=== PATIENT | female | born 1985 | race African-American/Black ===

== ENCOUNTER 2017-07-02 01:52 | Emergency (ER) | payer BC ==
--- NOTE | 2017-07-02 02:01 | EDM.PDOC ---
ED HPI GENERAL MEDICAL PROBLEM - General Chief Complaint: Laceration Stated Complaint: CUT ON RIGHT ARM Time Seen by Provider: 07/02/17 02:01 Source of Information: Reports: Patient - History of Present Illness INITIAL COMMENTS - FREE TEXT/NARRATIVE: HISTORY AND PHYSICAL: History of present illness: [ Patient presents with 2 lacerations on her right arm near the antecubital fossa , first lesion is gaping and 5 cm, this lesion has a torn appearance and is angular almost zigzag appearance A second laceration below this is 2.5 cm and linear traveling proximal to distal ] She is also missing the entire nail on her right thumb Patient denies self-harm, patient will not relay what occurred, police dropped her off at the front door but did not accompany in our relay any specifics No fever nausea vomiting chills sweats no chest pain shortness breath headache dizziness palpitation Review of systems: As per history of present illness and below otherwise all systems reviewed and negative. Past medical history: As per history of present illness and as reviewed below otherwise noncontributory. Surgical history: As per history of present illness and as reviewed below otherwise noncontributory. Social history: No reported history of drug or alcohol abuse. Family history: As per history of present illness and as reviewed below otherwise noncontributory. Physical exam: HEENT: Atraumatic, normocephalic, pupils reactive, negative for conjunctival pallor or scleral icterus, mucous membranes moist, throat clear, neck supple, nontender, trachea midline. Lungs: Clear to auscultation, breath sounds equal bilaterally, chest nontender. Heart: S1S2, regular, negative for clicks, rubs, or JVD. Abdomen: Soft, nondistended, nontender. Negative for masses or hepatosplenomegaly. Negative for costovertebral tenderness. Pelvis: Stable nontender. Genitourinary: Deferred. Rectal: Deferred. Extremities: Atraumatic, negative for cords or calf pain. Neurovascular unremarkable. Neuro: Awake, alert, oriented. Cranial nerves II through XII unremarkable. Cerebellum unremarkable. Motor and sensory unremarkable throughout. Exam nonfocal. Skin as per history of present illness otherwise unremarkable Diagnostics: [Clinical] Therapeutics: [T dap Keflex 500 by mouth Wound cleansed and explored Lidocaine #5 5-0 Prolene interrupted sutures lesion #1 #2 5-0 Prolene sutures interrupted lesion #2 ] Fingernail injury right thumb, bacitracin Telfa tube dressing placed Sutures out in 10 days Follow-up with Adrienne Sykes Impression: [ 7.5 cm laceration , simple Right thumbnail injury ] Definitive disposition and diagnosis as appropriate pending reevaluation and review of above. Generalized Pain Score (Numeric/FACES): 10 - Related Data Allergies Allergy/AdvReac Type Severity Reaction Status Date / Time No Known Allergies Allergy Verified 07/02/17 02:15 Home Meds: Home Meds . [No Known Home Meds] 07/02/17 [History] Past Medical History - Past Health History Medical/Surgical History: Denies Medical/Surgical History - Infectious Disease History Infectious Disease History: Reports: Chicken Pox Social & Family History - Living Situation & Occupation Living situation: Reports: Single ED ROS GENERAL - Review of Systems Review Of Systems: See Below ED EXAM, SKIN/RASH Exam: See Below Course - Vital Signs Last Recorded V/S: Last Vital Signs Temp 98.6 F 07/02/17 02:39 Pulse 91 07/02/17 02:39 Resp 22 H 07/02/17 02:39 BP 116/72 07/02/17 02:39 Pulse Ox 99 07/02/17 02:39 - Orders/Labs/Meds Orders: Active Orders 24 hr Category Date Time Status Vaccines to be Administered [RC] PER UNIT ROUTINE Care 07/02/17 02:02 Active Cephalexin [Keflex] Med 07/02/17 02:43 Once 500 mg PO ONETIME ONE Meds: Medications Discontinued Medications Generic Name Dose Route Start Last Admin Trade Name Freq PRN Reason Stop Dose Admin Diphtheria/Tetanus/Acell Pertussis 0.5 ml 07/02/17 02:02 07/02/17 02:28 Adacel IM 07/02/17 02:03 0.5 ml .ONCE ONE Administration Lidocaine HCl 20 ml 07/02/17 02:02 07/02/17 02:28 Xylocaine 1% INJECT 07/02/17 02:03 20 ml ONETIME ONE Administration Departure - Departure Time of Disposition: 02:48 Disposition: Home, Self-Care 01 Condition: Good Clinical Impression: Laceration, Fingernail injury - Discharge Information Referrals: PCP,None [Primary Care Provider] - Forms: ED Department Discharge Additional Instructions: Standard wound care Sutures out in 10 days Keflex 500 by mouth twice a day #20 no refill Follow-up with Dr. Melanie Sykes concerning the thumbnail, sutures could repeat removed at that time or return to ER for suture removal [facility] - [facility] [address], [address] [place] [address] The following information is given to patients seen in the emergency department who are being discharged to home. This information is to outline your options for follow-up care. We provide all patients seen in our emergency department with a follow-up referral. The need for follow-up, as well as the timing and circumstances, are variable depending upon the specifics of your emergency department visit. If you don't have a primary care physician on staff, we will provide you with a referral. We always advise you to contact your personal physician following an emergency department visit to inform them of the circumstance of the visit and for follow-up with them and/or the need for any referrals to a consulting specialist. The emergency department will also refer you to a specialist when appropriate. This referral assures that you have the opportunity for follow-up care with a specialist. All of these measure are taken in an effort to provide you with optimal care, which includes your follow-up. Under all circumstances we always encourage you to contact your private physician who remains a resource for coordinating your care. When calling for follow-up care, please make the office aware that this follow-up is from your recent emergency room visit. If for any reason you are refused follow-up, please contact the [facility] emergency department at and asked to speak to the emergency department charge nurse. - My Orders Last 24 Hours: My Active Orders 07/02/17 02:02 Vaccines to be Administered [RC] PER UNIT ROUTINE 07/02/17 02:43 Cephalexin [Keflex] 500 mg PO ONETIME ONE - Assessment/Plan Last 24 Hours: My Active Orders 07/02/17 02:02 Vaccines to be Administered [RC] PER UNIT ROUTINE 07/02/17 02:43 Cephalexin [Keflex] 500 mg PO ONETIME ONE
[2017-07-02] MEDS ORDERED: Lidocaine 1% 20 ML MDV INJECT ONE (02:02)
[2017-07-02] MEDS ORDERED: Diphtheria,Pertussis(Acell),Tetanus Vaccine 0.5 ML Syringe IM ONE (02:02)
[2017-07-02] MEDS ORDERED: Cephalexin 500 MG Cap PO ONE (02:43)
[2017-07-02] MEDS ORDERED: Bacitracin Oint 1 GM U/D Packet TOP ONE (02:45)
[2017-07-02 03:10] VITALS: BP 126/74
== END 2017-07-02 03:05 | disposition home or self-care (01) ==
LOC: MW.ED 01:52
DX: S61.111A Laceration without foreign body of right thumb with damage to nail, initial encounter (principal); S41.111A Laceration without foreign body of right upper arm, initial encounter; W45.8XXA Other foreign body or object entering through skin, initial encounter; Z23 Encounter for immunization
CPT/HCPCS: 12002; 90471; 90715; 99283; A9270

== ENCOUNTER 2019-08-20 23:23 | Emergency (ER) | payer BC ==
--- NOTE | 2019-08-20 23:45 | EDM.PDOC ---
ED HPI GENERAL MEDICAL PROBLEM - General Chief Complaint: ENT Problem Stated Complaint: GLUE IN LEFT EYE Time Seen by Provider: 08/20/19 23:35 Source of Information: Reports: Patient History Limitations: Reports: No Limitations - History of Present Illness INITIAL COMMENTS - FREE TEXT/NARRATIVE: 34-year-old female presents with eyelash priming glue to the right eye just prior to arrival. she rinsed it off with water for about 5 to 10 minutes. She notes blurry vision in her right eye and pain to her right eye. She does not wear glasses. ROS: A 10-point review of systems, other than pertinent positives and negatives as stated per HPI, is otherwise negative PHYSICAL EXAM General: AOx4, GCS = 15, No distress HEENT: dry mucous membrane, right eye injected, glue remnant at the center of the right eye. Neck: supple, no meningismus, no Kernig or Brudzinski Cardiac: S1S2 RRR Respiratory: CTAB, no crackles or rales, no wheezing Abdomen: Soft, nontender, no rebound or guarding, nondistended, no pulsatile mass. Back: nontender Musculoskeletal: NVI distally, no deformity Neuro: No focal deficits, CN 2 - 12 WNL. Onset: Today - Related Data Allergies Allergy/AdvReac Type Severity Reaction Status Date / Time No Known Allergies Allergy Verified 08/20/19 23:37 Home Meds: Home Meds . [No Known Home Meds] 07/02/17 [History] Past Medical History - Past Health History Medical/Surgical History: Denies Medical/Surgical History - Infectious Disease History Infectious Disease History: Reports: Chicken Pox Social & Family History - Family History Family Medical History: Noncontributory - Caffeine Use Caffeine Use: Reports: None - Living Situation & Occupation Living situation: Reports: Single ED ROS ENT - Review of Systems Review Of Systems: Comprehensive ROS is negative, except as noted in HPI. ED EXAM, ENT - Physical Exam Exam: See Below (see dictation) Course - Vital Signs Last Recorded V/S: Last Vital Signs Temp 97.9 F 08/20/19 23:35 Pulse 81 08/20/19 23:35 Resp 18 08/20/19 23:35 BP 115/75 08/20/19 23:35 Pulse Ox 98 08/20/19 23:35 - Orders/Labs/Meds Meds: Medications Discontinued Medications Generic Name Dose Route Start Last Admin Trade Name Alec PRN Reason Stop Dose Admin Tetracaine HCl Confirm 08/20/19 23:51 Tetracaine 0.5% Steri-Unit Sulema Administered 08/20/19 23:52 Dose 4 ml .ROUTE .STK-MED ONE Tetracaine HCl 2 ml 08/21/19 00:03 Tetracaine 0.5% Steri-Unit Sulema EYERT 08/21/19 00:04 NOW STA - Re-Assessments/Exams Free Text/Narrative Re-Assessment/Exam: 08/20/19 23:45 Right eye rinsed with Ajime's lens. 08/21/19 00:06 After aggressive irrigation, the glue remnant is washed off. I checked her right eye with Rivas lamp and there was no signs of corneal abrasion or globe rupture. She feels much better and is stable for discharge. I advised the patient to return to the ER for reevaluation if symptoms worsened, and to follow up with their PCP within 2-3 days. MEDICAL DECISION MAKING: I reviewed the patients past medical records, lab and radiographic findings. I discussed the case with the patient. My differential diagnosis included: Corneal abrasion, glue foreign body in right eye. Blue remnants were successfully irrigated out with saline. There is no corneal abrasion on Rivas lamp fluorescein exam. Departure - Departure Time of Disposition: 00:07 Disposition: Home, Self-Care 01 Condition: Good Clinical Impression: Foreign body, eye - Discharge Information *PRESCRIPTION DRUG MONITORING PROGRAM REVIEWED*: Not Applicable *COPY OF PRESCRIPTION DRUG MONITORING REPORT IN PATIENT RAMIN: Not Applicable Instructions: Eye Foreign Body, [place]-Uflw Referrals: PCP,None [Primary Care Provider] - 1 Week Forms: ED Department Discharge Additional Instructions: The following information is given to patients seen in the emergency department who are being discharged to home. This information is to outline your options for follow-up care. We provide all patients seen in our emergency department with a follow-up referral. The need for follow-up, as well as the timing and circumstances, are variable depending upon the specifics of your emergency department visit. If you don't have a primary care physician on staff, we will provide you with a referral. We always advise you to contact your personal physician following an emergency department visit to inform them of the circumstance of the visit and for follow-up with them and/or the need for any referrals to a consulting specialist. The emergency department will also refer you to a specialist when appropriate. This referral assures that you have the opportunity for follow-up care with a specialist. All of these measure are taken in an effort to provide you with optimal care, which includes your follow-up. Under all circumstances we always encourage you to contact your private physician who remains a resource for coordinating your care. When calling for follow-up care, please make the office aware that this follow-up is from your recent emergency room visit. If for any reason you are refused follow-up, please contact the [facility] Emergency Department at and asked to speak to the emergency department charge nurse. If you do not have a primary care doctor, please follow up with the clinics below within 3-5 days. [facility] [address] [place] [id number] [facility] [address] [place] [id number] Sepsis Event Note (ED) - Focused Exam Vital Signs: Vital Signs Temp Pulse Resp BP Pulse Ox 08/20/19 23:35 97.9 F 81 18 115/75 98
[2019-08-20] MEDS ORDERED: Tetracaine HCl/PF 0.5% 4 ML Bottle ONE (23:51)
[2019-08-21] MEDS ORDERED: Tetracaine HCl/PF 0.5% 4 ML Bottle EYERT STA (00:03)
[2019-08-21 00:38] VITALS: BP 117/71; PULSE 61
== END 2019-08-21 00:15 | disposition home or self-care (01) ==
LOC: MW.ED 23:23
DX: T15.91XA Foreign body on external eye, part unspecified, right eye, initial encounter (principal)
CPT/HCPCS: 99282; 99283

== ENCOUNTER 2019-11-29 10:41 | Day surgery (SDC) | payer BC ==
[~2019-11-29 10:41] MED LIST: Lactated Ringers 1,000 ML IV SCH; Lidocaine 2% 5 ML SDV ONE; Midazolam 1 MG/ML 2 ML SDV ONE; Ondansetron 4 MG/2 ML SDV ONE; Propofol 200 MG/20 ML SDV ONE; fentaNYL 250 MCG/5 ML SDV ONE
--- NOTE | 2019-11-29 11:25 | PCM.PREANE ---
Preanesthetic Assessment - Anesthesia/Transfusion/Family Hx Anesthesia History: Prior Anesthesia Without Reaction Family History of Anesthesia Reaction: No Transfusion History: No Prior Transfusion(s) Intubation History: Unknown - Review of Systems General: No Symptoms Pulmonary: No Symptoms Cardiovascular: No Symptoms Gastrointestinal: No Symptoms Neurological: No Symptoms Other: Reports: None - Physical Assessment Height: 5 ft 3 in Weight: 69.4 kg ASA Class: 2 Mental Status: Alert & Oriented x3 Airway Class: Mallampati = 1 Dentition: Reports: Normal Dentition Thyro-Mental Finger Breadths: 3 Mouth Opening Finger Breadths: 3 ROM/Head Extension: Full Lungs: Clear to Auscultation, Normal Respiratory Effort Cardiovascular: Regular Rate, Regular Rhythm - Lab Values: Laboratory Last Values Urine HCG, Qual NEGATIVE (NEGATIVE) 11/29/19 11:00 - Allergies Allergies/Adverse Reactions: Allergies Allergy/AdvReac Type Severity Reaction Status Date / Time pineapple Allergy Swelling Verified 11/23/19 13:11 - Blood Blood Available: No - Anesthesia Plan Pre-Op Medication Ordered: None - Acknowledgements Anesthesia Type Planned: General Anesthesia Pt an Appropriate Candidate for the Planned Anesthesia: Yes Alternatives and Risks of Anesthesia Discussed w Pt/Guardian: Yes Pt/Guardian Understands and Agrees with Anesthesia Plan: Yes PreAnesthesia Questionnaire - Past Health History Medical/Surgical History: Denies Medical/Surgical History HEENT History: Reports: None Cardiovascular History: Reports: None Respiratory History: Reports: None Gastrointestinal History: Reports: None Genitourinary History: Reports: None DIRECTOR IMMUNOLOGY History: Reports: Other (See Below) (dysmenorrhea, menorrhagia) Musculoskeletal History: Reports: None Neurological History: Reports: None Other Psychiatric History: h/o depression Hematologic History: Reports: None Immunologic History: Reports: None Oncologic (Cancer) History: Reports: None Dermatologic History: Reports: None - Infectious Disease History Infectious Disease History: Reports: Chicken Pox - Past Surgical History Head Surgeries/Procedures: Reports: None HEENT Surgical History: Reports: None Female Surgical History: Reports: Breast Implant Oncologic Surgical History: Reports: None - SUBSTANCE USE Tobacco Use Status *Q: Never Tobacco User - HOME MEDS Home Medications: Home Meds Biotin 1 tab PO DAILY 11/23/19 [History] Fish Oil/[place]-3 Fatty Acids [Fish Oil 1,000 MG] 1 tab PO DAILY 10/16/20 [History] - CURRENT (IN HOUSE) MEDS Current Meds: Current Medications Lactated Ringer's (Ringers, Lactated) 1,000 mls @ 125 mls/hr IV ASDIRECTED YVROSE Discontinued Medications Fentanyl (Sublimaze) Confirm Administered Dose 250 mcg .ROUTE .STK-MED ONE Stop: 11/29/19 08:34 Lidocaine (Xylocaine-Mpf 2%) Confirm Administered Dose 5 ml .ROUTE .STK-MED ONE Stop: 11/29/19 08:33 Midazolam HCl (Versed 1 Mg/Ml) Confirm Administered Dose 2 mg .ROUTE .STK-MED ONE Stop: 11/29/19 08:34 Ondansetron HCl (Zofran) Confirm Administered Dose 4 mg .ROUTE .STK-MED ONE Stop: 11/29/19 08:33 Propofol (Diprivan 20 Ml) Confirm Administered Dose 200 mg .ROUTE .STK-MED ONE Stop: 11/29/19 08:34
[2019-11-29] MEDS ORDERED: Ketorolac 30 MG/ML SDV ONE (13:24)
[2019-11-29] MEDS ORDERED: Dexamethasone 4 MG/ML 5 ML MDV ONE (13:24)
[2019-11-29] MEDS ORDERED: 50% Dextrose in Water 50 ML Syringe IVPUSH PRN (13:30)
[2019-11-29] MEDS ORDERED: Atropine 0.1 MG/ML 10 ML Syringe IVPUSH PRN ×2 (13:30)
[2019-11-29] MEDS ORDERED: Albuterol 0.083% 2.5 MG/3 ML Neb Soln NEB PRN (13:30)
[2019-11-29] MEDS ORDERED: EPINEPHrine 1:10,000 1 MG/10 ML Syringe IVPUSH PRN (13:30)
[2019-11-29] MEDS ORDERED: fentaNYL 100 MCG/2 ML SDV IVPUSH PRN (13:30)
[2019-11-29] MEDS ORDERED: Naloxone 0.4 MG/ML Syringe IVPUSH PRN (13:30)
[2019-11-29] MEDS ORDERED: HYDROmorphone 2 MG/ML Syringe IVPUSH PRN (13:30)
[2019-11-29] MEDS ORDERED: Ondansetron 4 MG/2 ML SDV IVPUSH PRN (13:30)
--- NOTE | 2019-11-29 13:39 | PCM.OPNOTE ---
- General Post-Op/Procedure Note Date of Surgery/Procedure: 11/29/19 Operative Procedure(s): Hystroscopy removal of IUD Post-Op Diagnosis: Same Anesthesia Technique: General LMA Primary Surgeon: Jamarcus Gonzalez EBL in mLs: 30 Complications: None Condition: Good
--- NOTE | 2019-11-29 13:40 | PCM.DCSUM1 ---
Discharge Summary - Hospital Course Diagnosis: Stroke: No - Discharge Data Discharge Date: 11/29/19 Discharge Disposition: Home, Self-Care 01 Condition: Good - Referral to Home Health Primary Care Physician: Jamarcus Gonzalez MD - Patient Summary/Data Operative Procedure(s) Performed: Hystroscopy removal of IUD - Patient Instructions Diet: Usual Diet as Tolerated Activity: As Tolerated Driving: Do Not Drive Showering/Bathing: May Shower - Discharge Plan Home Medications: Home Meds Biotin 1 tab PO DAILY 11/23/19 [History] Fish Oil/[place]-3 Fatty Acids [Fish Oil 1,000 MG] 1 tab PO DAILY 11/23/19 [History] - Discharge Summary/Plan Comment DC Time >30 min.: Yes - General Info Date of Service: 11/29/19 Functional Status: Reports: Pain Controlled - Review of Systems General: Reports: No Symptoms HEENT: Reports: No Symptoms Pulmonary: Reports: No Symptoms Cardiovascular: Reports: No Symptoms Gastrointestinal: Reports: No Symptoms Genitourinary: Reports: No Symptoms Musculoskeletal: Reports: No Symptoms Skin: Reports: No Symptoms Neurological: Reports: No Symptoms Psychiatric: Reports: No Symptoms - Patient Data Vitals - Most Recent: Last Vital Signs Temp 36.6 C 11/29/19 11:30 Pulse 71 11/29/19 11:30 Resp 15 11/29/19 11:30 BP 116/72 11/29/19 11:30 Pulse Ox 100 11/29/19 11:30 Weight - Most Recent: 69.4 kg Lab Results - Last 24 hrs: Laboratory Results - last 24 hr 11/29/19 Range/Units 11:00 Urine HCG, Qual NEGATIVE (NEGATIVE) Med Orders - Current: Current Medications Albuterol (Proventil Neb Soln) 2.5 mg NEB ONETIME PRN PRN Reason: Wheezing Atropine Sulfate (Atropine 0.1 Mg/Ml) 0.5 mg IVPUSH ASDIRECTED PRN PRN Reason: Hypo-perfusion Atropine Sulfate (Atropine 0.1 Mg/Ml) 1 mg IVPUSH ASDIRECTED PRN PRN Reason: Hypo-Perfusion Dextrose/Water (Dextrose 50% In Water) 50 ml IVPUSH ASDIRECTED PRN PRN Reason: Hypoglycemia Epinephrine HCl (Epinephrine 1:10,000) 1 mg IVPUSH ASDIRECTED PRN PRN Reason: ACLS Guidelines Fentanyl (Sublimaze) 50 mcg IVPUSH Q5M PRN PRN Reason: Pain Hydromorphone HCl (Dilaudid) 0.5 mg IVPUSH .Q5MIN PRN PRN Reason: Pain (severe 7-10) Stop: 11/30/19 13:30 Lactated Ringer's (Ringers, Lactated) 1,000 mls @ 125 mls/hr IV ASDIRECTED YVROSE Naloxone HCl (Narcan) 0.1 mg IVPUSH ASDIRECTED PRN PRN Reason: Respiratory Depression Ondansetron HCl (Zofran) 4 mg IVPUSH ONETIME PRN PRN Reason: Nausea/Vomiting Discontinued Medications Dexamethasone (Dexamethasone) Confirm Administered Dose 20 mg .ROUTE .STK-MED ONE Stop: 11/29/19 13:25 Fentanyl (Sublimaze) Confirm Administered Dose 250 mcg .ROUTE .STK-MED ONE Stop: 11/29/19 08:34 Ketorolac Tromethamine (Toradol) Confirm Administered Dose 30 mg .ROUTE .STK-MED ONE Stop: 11/29/19 13:25 Lidocaine (Xylocaine-Mpf 2%) Confirm Administered Dose 5 ml .ROUTE .STK-MED ONE Stop: 11/29/19 08:33 Midazolam HCl (Versed 1 Mg/Ml) Confirm Administered Dose 2 mg .ROUTE .STK-MED ONE Stop: 11/29/19 08:34 Ondansetron HCl (Zofran) Confirm Administered Dose 4 mg .ROUTE .STK-MED ONE Stop: 11/29/19 08:33 Propofol (Diprivan 20 Ml) Confirm Administered Dose 200 mg .ROUTE .STK-MED ONE Stop: 11/29/19 08:34 - Exam General: Reports: Alert, Oriented HEENT: Reports: Pupils Equal, Pupils Reactive, EOMI, Mucous Membr. Moist/[place] Neck: Reports: Supple Lungs: Reports: Clear to Auscultation, Normal Respiratory Effort Cardiovascular: Reports: Regular Rate, Regular Rhythm GI/Abdominal Exam: Normal Bowel Sounds, Soft, Non-Tender, No Organomegaly, No Distention, No Abnormal Bruit, No Mass, Pelvis Stable (Female) Exam: Normal External Exam, Normal Speculum Exam, Normal Bimanual Exam Rectal (Female) Exam: Normal Exam, Normal Rectal Tone Back Exam: Reports: Normal Inspection, Full Range of Motion Extremities: Normal Inspection, Normal Range of Motion, Non-Tender, No Pedal Edema, Normal Capillary Refill Skin: Reports: Warm, Dry, Intact Wound/Incisions: Reports: Healing Well Neurological: Reports: No New Focal Deficit Psy/Mental Status: Reports: Alert, Normal Affect, Normal Mood
--- NOTE | 2019-11-29 14:00 | PCM.POSTAN ---
POST ANESTHESIA ASSESSMENT - MENTAL STATUS Mental Status: Alert, Oriented - VITAL SIGNS Vital Signs: Last Vital Signs Temp 36.7 C 11/29/19 13:42 Pulse 62 11/29/19 13:57 Resp 13 11/29/19 13:57 BP 105/66 11/29/19 13:57 Pulse Ox 100 11/29/19 13:57 - RESPIRATORY Respiratory Status: Respiratory Rate WNL, Airway Patent, O2 Saturation Stable - CARDIOVASCULAR CV Status: Pulse Rate WNL, Blood Pressure Stable - GASTROINTESTINAL GI Status: No Symptoms - PAIN Pain Score: 0 - POST OP HYDRATION Hydration Status: Adequate & Stable - OBSERVATIONS Free Text/Narrative:: No anesthesia problems
--- NOTE | 2019-11-29 14:20 | PCM48HPAN ---
Post Anesthesia Note - EVALUATION WITHIN 48HRS OF ANESTHETIC Vital Signs in Normal Range: Yes Patient Participated in Evaluation: Yes Respiratory Function Stable: Yes Airway Patent: Yes Cardiovascular Function Stable: Yes Hydration Status Stable: Yes Pain Control Satisfactory: Yes Nausea and Vomiting Control Satisfactory: Yes Mental Status Recovered: Yes Vital Signs: Last Vital Signs Temp 36.7 C 11/29/19 13:42 Pulse 62 11/29/19 13:57 Resp 13 11/29/19 13:57 BP 105/66 11/29/19 13:57 Pulse Ox 100 11/29/19 13:57 - COMMENTS/OBSERVATIONS Free Text/Narrative:: No anesthesia problems
[2019-11-29 14:55] VITALS: BP 112/69; PULSE 61
--- NOTE | 2019-11-30 09:55 | OR ---
SURGEON: Jamarcus Gonzalez MD DATE OF PROCEDURE: 11/29/2019 PREOPERATIVE DIAGNOSIS: Lost intrauterine device. POSTOPERATIVE DIAGNOSIS: Lost intrauterine device. OPERATION PERFORMED: Hysteroscopy, removal of the lost intrauterine device. PRIMARY SURGEON: Jamarcus Gonzalez MD LAW OFFICE ASSISTANT: OR tech. ANESTHESIA: LMA, Dr. Campos. ESTIMATED BLOOD LOSS: Less than 20 mL. COMPLICATIONS: None. FINDINGS: IUD removed without any problem. INDICATIONS FOR SURGERY: This patient did have a lost IUD. I was unable to remove it in the office and placement was verified by ultrasound. PROCEDURE IN DETAIL: The patient was brought to the OR, properly identified, and after adequate level of anesthesia, the patient placed in lithotomy position, prepped and draped in sterile fashion as usual and then speculum placed in the vagina. The cervix dilated to accommodate a small hysteroscope. Hysteroscopy was performed and the IUD was located and removed without any problem and the procedure ended. Instrument and sponge count was correct. The patient tolerated the procedure well, went to recovery room in stable general condition. HOWARD / LEANDRO /[id number]
== END 2019-11-29 14:30 | disposition home or self-care (01) ==
LOC: MW.SDS 10:41
PROVIDERS: ATTEND Obstetrics & Gynecology
DX: Z30.432 Encounter for removal of intrauterine contraceptive device (principal); F32.9 Major depressive disorder, single episode, unspecified; Z91.018 Allergy to other foods; Z79.899 Other long term (current) drug therapy
CPT/HCPCS: 58562; 81025; J1100; J1885; J2001; J2250; J2704; J3010; J7120; 00952; 88300; J2405

== ENCOUNTER 2023-02-28 12:04 | Emergency (ER) | payer BC ==
[2023-02-28 12:50] LABS: BASOPHILS ABSOLUTE AUTO 0.02 K/uL (0.00-0.20); BASOPHILS PERCENT AUTO 0.3 % (0.0-1.0); EOSINOPHILS ABSOLUTE AUTO 0.04 K/uL (0.00-0.45); EOSINOPHILS PERCENT AUTO 0.7 % (0.0-6.0); HEMATOCRIT 38.7 % (37.0-47.0); HEMOGLOBIN 13.1 g/dL (12.0-16.0); IMMATURE GRAN ABSOLUTE AUTO 0.01 K/uL (0.00-0.05); IMMATURE GRAN PERCENT AUTO 0.2 % (0.0-0.4); LYMPHOCYTES ABSOLUTE AUTO 2.01 K/uL (1.00-4.80); LYMPHOCYTES PERCENT AUTO 33.9 % (24.0-44.0); MEAN CORPUSCULAR HEMOGLOBIN 29.5 pg (28.0-32.0); MEAN CORPUSCULAR HGB CONC 33.9 g/dL (32.0-36.0); MEAN CORPUSCULAR VOLUME 87.2 fL (83.0-99.0); MEAN PLATELET VOLUME 9.6 fL (9.4-12.3); MONOCYTES ABSOLUTE AUTO 0.64 K/uL (0.00-0.80); MONOCYTES PERCENT AUTO 10.8 % (0.0-8.0); NEUTROPHILS ABSOLUTE AUTO 3.21 K/uL (1.80-7.70); NEUTROPHILS PERCENT AUTO 54.1 % (41.0-71.0); PLATELET COUNT,PLT 262 K/uL (150-400); RED BLOOD CELL COUNT 4.44 M/uL (4.10-5.30); WHITE BLOOD CELL COUNT,WBC 5.93 K/uL (3.9-11.3)
[2023-02-28 13:52] LABS: A/G RATIO 0.9 (0.9-1.6); ALANINE AMINOTRANSFERASE,ALT 8 IU/L (14-63); ALBUMIN 3.5 g/dL (3.4-5.0); ALKALINE PHOSPHATASE 61 U/L (46-116); ASPARTATE AMNIOTRANSFERASE,AST 11 IU/L (15-37); BILIRUBIN TOTAL 0.2 mg/dL (0.2-1.0); BLOOD UREA NITROGEN,BUN 8 mg/dL (7.0-18.0); CALCIUM 9.2 mg/dL (8.5-10.1); CARBON DIOXIDE,CO2 23.4 mmol/L (21.0-32.0); CHLORIDE,CL 102 mmol/L (98-107); CREATININE 0.7 mg/dL (0.6-1.0); GLUCOSE RANDOM 84 mg/dL (74-106); POTASSIUM,K 3.9 mmol/L (3.5-5.1); PROTEIN TOTAL,TP 7.3 g/dL (6.4-8.2); SODIUM,NA 137 mmol/L (136-145)
[2023-02-28 13:53] LABS: ESTIMATED GFR 116 mL/min (>60)
[2023-02-28 20:01] VITALS: BP 98/62; PULSE 79
== END 2023-02-28 15:02 | disposition home or self-care (01) ==
LOC: MW.ED 12:04
DX: O26.851 Spotting complicating pregnancy, first trimester (principal); O21.9 Vomiting of pregnancy, unspecified; O36.0199 Maternal care for anti-D [Rh] antibodies, unspecified trimester, other fetus; Z91.018 Allergy to other foods; Z3A.01 Less than 8 weeks gestation of pregnancy
CPT/HCPCS: 36415; 76801; 76801-26; 80053; 84702; 85025; 86900; 86901; 99283; 99284

== ENCOUNTER 2023-05-28 12:55 | Emergency (ER) | payer BC ==
[2023-05-28 13:49] LABS: BASOPHILS ABSOLUTE AUTO 0.02 K/uL (0.00-0.20); BASOPHILS PERCENT AUTO 0.2 % (0.0-1.0); EOSINOPHILS ABSOLUTE AUTO 0.08 K/uL (0.00-0.45); EOSINOPHILS PERCENT AUTO 0.9 % (0.0-6.0); HEMATOCRIT 37.4 % (37.0-47.0); HEMOGLOBIN 12.8 g/dL (12.0-16.0); IMMATURE GRAN ABSOLUTE AUTO 0.05 K/uL (0.00-0.05); IMMATURE GRAN PERCENT AUTO 0.6 % (0.0-0.4); LYMPHOCYTES ABSOLUTE AUTO 1.95 K/uL (1.00-4.80); LYMPHOCYTES PERCENT AUTO 22.3 % (24.0-44.0); MEAN CORPUSCULAR HEMOGLOBIN 29.2 pg (28.0-32.0); MEAN CORPUSCULAR HGB CONC 34.2 g/dL (32.0-36.0); MEAN CORPUSCULAR VOLUME 85.2 fL (83.0-99.0); MEAN PLATELET VOLUME 9.3 fL (9.4-12.3); MONOCYTES ABSOLUTE AUTO 0.58 K/uL (0.00-0.80); MONOCYTES PERCENT AUTO 6.6 % (0.0-8.0); NEUTROPHILS ABSOLUTE AUTO 6.06 K/uL (1.80-7.70); NEUTROPHILS PERCENT AUTO 69.4 % (41.0-71.0); PLATELET COUNT,PLT 255 K/uL (150-400); RED BLOOD CELL COUNT 4.39 M/uL (4.10-5.30); WHITE BLOOD CELL COUNT,WBC 8.74 K/uL (3.9-11.3)
[2023-05-28 14:18] LABS: BILIRUBIN,URINE NEGATIVE (NEGATIVE); COLOR,URINE YELLOW; GLUCOSE,URINE NEGATIVE (NEGATIVE); KETONES,URINE NEGATIVE (NEGATIVE); LEUKOCYTE ESTERASE,URINE NEGATIVE (NEGATIVE); NITRITE,URINE NEGATIVE (NEGATIVE); OCCULT BLOOD,URINE NEGATIVE (NEGATIVE); PROTEIN,URINE NEGATIVE (NEGATIVE)
[2023-05-28 14:19] LABS: A/G RATIO 0.6 (0.9-1.6); ALBUMIN 2.7 g/dL (3.4-5.0); BILIRUBIN TOTAL 0.2 mg/dL (0.2-1.0); CALCIUM 8.9 mg/dL (8.5-10.1); CARBON DIOXIDE,CO2 21.7 mmol/L (21.0-32.0); CREATININE 0.6 mg/dL (0.6-1.0); EST CRCL DRUG DOSING (CG) 102.52 mL/min; POTASSIUM,K 3.5 mmol/L (3.5-5.1); PROTEIN TOTAL,TP 6.9 g/dL (6.4-8.2)
[2023-05-28 14:26] LABS: APPEARANCE,URINE HAZY
[2023-05-28 14:35] VITALS: PULSE 96
[2023-05-28 16:42] VITALS: BP 107/64
== END 2023-05-28 16:43 | disposition home or self-care (01) ==
LOC: MW.ED 12:55
DX: O99.891 Other specified diseases and conditions complicating pregnancy (principal); R10.9 Unspecified abdominal pain; R05.1 Acute cough; O99.342 Other mental disorders complicating pregnancy, second trimester; F32.A Depression, unspecified; Z3A.19 19 weeks gestation of pregnancy; Z79.899 Other long term (current) drug therapy; Z79.82 Long term (current) use of aspirin; Z75.8 Other problems related to medical facilities and other health care; Z91.018 Allergy to other foods
CPT/HCPCS: 36415; 76805; 76805-26; 80053; 81003; 83690; 85025; 99283; 99284

== ENCOUNTER 2023-10-16 00:08 | Inpatient (IN) | payer BC ==
[2023-10-16] MEDS ORDERED: Carboprost Tromethamine 250 MCG/1 mL Vial IM PRN ×2 (01:04→22:37)
[2023-10-16] MEDS ORDERED: Water For Irrigation,Sterile 1,000 ML Container IRR PRN (01:04)
[2023-10-16] MEDS ORDERED: Sodium Chloride 0.9% 20 ML SDV IV PRN (01:04)
[2023-10-16] MEDS ORDERED: Sodium Chloride 0.9% 10 ML Syringe FLUSH PRN ×2 (01:04→22:37)
[2023-10-16] MEDS ORDERED: Ondansetron 4 MG/2 ML SDV IVPUSH PRN ×4 (01:04→22:41)
[2023-10-16] MEDS ORDERED: Nalbuphine 10 MG/1 ML Vial IVPUSH PRN ×2 (01:04→22:41)
[2023-10-16] MEDS ORDERED: Lidocaine 1% 50 ML MDV INJECT PRN (01:04)
[2023-10-16] MEDS ORDERED: Sodium Chloride 0.9% 2.5 ML Syringe FLUSH PRN ×2 (01:04→22:37)
[2023-10-16] MEDS ORDERED: Methylergonovine 0.2 MG/1 ML Amp IM PRN (01:04)
[2023-10-16] MEDS ORDERED: Tranexamic Acid IN NACL,ISO-OS 1,000 MG in Premix Bag 1 BAG IV PRN (01:04)
[2023-10-16] MEDS ORDERED: Misoprostol 200 MCG Tab PO PRN (01:04)
[2023-10-16] MEDS ORDERED: Oxytocin/0.9 % Sodium Chloride 30 UNIT/500 ML BAG IV SCH ×2 (01:15→22:45)
[2023-10-16 02:05] LABS: HEMATOCRIT 39.2 % (37.0-47.0); MEAN CORPUSCULAR HEMOGLOBIN 28.1 pg (28.0-32.0); MEAN CORPUSCULAR HGB CONC 33.2 g/dL (32.0-36.0); MEAN CORPUSCULAR VOLUME 84.7 fL (83.0-99.0); MEAN PLATELET VOLUME 10.1 fL (9.4-12.3); PLATELET COUNT,PLT 207 K/uL (150-400); RED BLOOD CELL COUNT 4.63 M/uL (4.10-5.30); WHITE BLOOD CELL COUNT,WBC 8.17 K/uL (3.9-11.3)
[2023-10-16] MEDS: Misoprostol 25 MCG (1/4 of 100 MCG) Tab PO PRN (02:08)
[2023-10-16] MEDS: Misoprostol 25 MCG (1/4 of 100 MCG) Tab VAG PRN ×2 (02:08→06:49)
[2023-10-16] MEDS: Butorphanol 2 MG/ML SDV IVPUSH PRN (10:25)
[2023-10-16] MEDS: Lactated Ringers 1,000 ML IV SCH (10:25)
[2023-10-16] MEDS: Terbutaline 1 MG/ML SDV SUBCUT PRN (15:29)
[2023-10-16] MEDS: Oxytocin/0.9 % Sodium Chloride 30 UNIT/500 ML BAG IV SCH (17:32)
[2023-10-16] MEDS ORDERED: fentaNYL 100 MCG/2 ML SDV ONE (20:43)
[2023-10-16] MEDS ORDERED: EPINEPHrine 1 MG/1 ML Amp ONE (20:43)
[2023-10-16] MEDS ORDERED: Ondansetron 4 MG/2 ML SDV ONE (20:43)
[2023-10-16] MEDS ORDERED: Bupivacaine 0.25% 30 ML SDV ONE (20:43)
[2023-10-16] MEDS ORDERED: Oxytocin 10 Units/1 ML SDV ONE (20:43)
[2023-10-16] MEDS ORDERED: Ketorolac 30 MG/ML SDV ONE (20:43)
[2023-10-16] MEDS ORDERED: Morphine PF 10 MG/10 ML SDV ONE (20:43)
[2023-10-16] MEDS ORDERED: Ropivacaine 0.5% 5 MG/ML 30 ML SDV ONE (20:43)
[2023-10-16] MEDS ORDERED: ceFAZolin 1 GM Vial ONE (20:43)
[2023-10-16] MEDS ORDERED: Phenylephrine HCl In 0.9% NaCl 1 MG/10 ML Syringe ONE ×2 (20:44→21:29)
[2023-10-16] MEDS: ceFAZolin 2 GM in Sodium Chloride 0.9% 50 ML IV ONE (21:05)
[2023-10-16] MEDS: Azithromycin 500 MG in Sodium Chloride 0.9% 250 ML IV ONE (21:10)
[2023-10-16] MEDS ORDERED: Azithromycin 500 MG Vial ONE (21:13)
[2023-10-16] MEDS ORDERED: ePHEDrine 50 MG/ML SDV ONE (22:05)
[2023-10-16] MEDS ORDERED: Measles, Mumps & Rubella Vaccine 0.5 ML SDV SUBCUT ONE (22:37)
[2023-10-16] MEDS ORDERED: Diphtheria,Pertussis(Acell),Tetanus Vaccine 0.5 ML Syringe IM ONE (22:37)
[2023-10-16] MEDS ORDERED: Misoprostol 200 MCG Tab RECTAL PRN (22:37)
[2023-10-16] MEDS ORDERED: Tranexamic Acid 1,000 MG in Sodium Chloride 0.9% 100 ML IV PRN (22:37)
[2023-10-16] MEDS ORDERED: oxyCODONE 5 MG Tab PO PRN (22:37)
[2023-10-16] MEDS ORDERED: Acetaminophen/oxyCODONE 325-5 MG Tab PO PRN (22:41)
[2023-10-16] MEDS ORDERED: Albuterol 0.083% 2.5 MG/3 ML Neb Soln NEB PRN (22:41)
[2023-10-16] MEDS ORDERED: Metoclopramide 10 MG/2 ML SDV IVPUSH PRN (22:41)
[2023-10-16] MEDS ORDERED: Phenylephrine HCl In 0.9% NaCl 1 MG/10 ML Syringe IVPUSH PRN (22:41)
[2023-10-16] MEDS ORDERED: HYDROmorphone 1 MG/ML Syringe IVPUSH PRN (22:41)
[2023-10-16] MEDS ORDERED: Naloxone 0.4 MG/ML SDV IVPUSH PRN (22:41)
[2023-10-16] MEDS ORDERED: fentaNYL 50 MCG/ML SDV IVPUSH PRN (22:41)
[2023-10-16] MEDS ORDERED: fentaNYL 100 MCG/2 ML SDV IVPUSH PRN (22:41)
[2023-10-16] MEDS ORDERED: Morphine 2 MG/ML SYRINGE IVPUSH PRN (22:41)
[2023-10-16] MEDS ORDERED: droPERidol 5 MG/2 ML SDV IVPUSH PRN (22:41)
[2023-10-16] MEDS ORDERED: Acetaminophen 500 MG Tab PO SCH (22:45)
[2023-10-16] MEDS ORDERED: metroNIDAZOLE 250 MG Tab PO SCH (22:45)
[2023-10-16] MEDS: Acetaminophen 1,000 MG in Premix Bag 1 BAG IV SCH (23:10)
[2023-10-17] MEDS: Ketorolac 30 MG/ML SDV IVPUSH SCH (03:57)
[2023-10-17] MEDS: metroNIDAZOLE 250 MG Tab PO SCH (03:57)
[2023-10-17] MEDS: Cephalexin 500 MG Cap PO SCH (05:33)
[2023-10-17 06:49] LABS: BASOPHILS ABSOLUTE AUTO 0.02 K/uL (0.00-0.20); BASOPHILS PERCENT AUTO 0.1 % (0.0-1.0); HEMATOCRIT 34.8 % (37.0-47.0); HEMOGLOBIN 11.7 g/dL (12.0-16.0); IMMATURE GRAN ABSOLUTE AUTO 0.11 K/uL (0.00-0.05); IMMATURE GRAN PERCENT AUTO 0.7 % (0.0-0.4); LYMPHOCYTES ABSOLUTE AUTO 0.98 K/uL (1.00-4.80); LYMPHOCYTES PERCENT AUTO 6.1 % (24.0-44.0); MEAN CORPUSCULAR HEMOGLOBIN 28.6 pg (28.0-32.0); MEAN CORPUSCULAR HGB CONC 33.6 g/dL (32.0-36.0); MEAN CORPUSCULAR VOLUME 85.1 fL (83.0-99.0); MEAN PLATELET VOLUME 10.3 fL (9.4-12.3); MONOCYTES ABSOLUTE AUTO 0.48 K/uL (0.00-0.80); NEUTROPHILS ABSOLUTE AUTO 14.49 K/uL (1.80-7.70); NEUTROPHILS PERCENT AUTO 90.1 % (41.0-71.0); PLATELET COUNT,PLT 199 K/uL (150-400); RED BLOOD CELL COUNT 4.09 M/uL (4.10-5.30); WHITE BLOOD CELL COUNT,WBC 16.08 K/uL (3.9-11.3)
[2023-10-17] MEDS ORDERED: Ketorolac 30 MG/ML SDV ONE (09:37)
[2023-10-17] MEDS ORDERED: Docusate Sodium 100 MG Cap ONE (09:37)
[2023-10-17] MEDS: diphenhydrAMINE 50 MG/ML SDV IVPUSH PRN (09:46)
[2023-10-17] MEDS: Docusate Sodium 100 MG Cap PO SCH (09:51)
[2023-10-17] MEDS: Methylergonovine 0.2 MG/1 ML Amp IM ONE (21:12)
[2023-10-17] MEDS: Acetaminophen 500 MG Tab PO SCH (22:15)
[2023-10-18] MEDS: Ibuprofen 800 MG Tab PO SCH (03:38)
[2023-10-18] MEDS: oxyCODONE 5 MG Tab PO PRN (06:26)
[2023-10-18 12:41] VITALS: BP 110/65; PULSE 85
== END 2023-10-18 14:00 | disposition home or self-care (01) | DRG 540 ==
LOC: MW.OB 00:08 → OBSVTOIN 21:32 → MW.OB 10-17 03:36
PROVIDERS: ADMIT Obstetrics & Gynecology; ATTEND Obstetrics & Gynecology Obstetrics
PROC: 10D00Z1 Extraction of Products of Conception, Low, Open Approach (ICD-10-PCS; principal; 2023-10-16 09:15)
DX: O99.214 Obesity complicating childbirth (principal); O76 Abnormality in fetal heart rate and rhythm complicating labor and delivery; Z37.0 Single live birth; Z3A.39 39 weeks gestation of pregnancy
CPT/HCPCS: 01961; 36415; 59514; 64488; 85025; 85027; 86592; 86850; 86900; 86901; A9270-GY; J0131; J0171; J0456; J0595; J0665; J0690; J1100; J1200; J1885; J2274; J2371; J2405; J2590; J2795; J3010; J3105; J3490; J7050; J7120

== ENCOUNTER 2023-10-23 04:58 | Emergency (ER) | payer BC ==
[2023-10-23] MEDS ORDERED: Sodium Chloride 0.9% 10 ML Syringe FLUSH PRN (05:05)
[2023-10-23] MEDS ORDERED: Sodium Chloride 0.9% 2.5 ML Syringe FLUSH PRN (05:05)
[2023-10-23 05:18] LABS: BASOPHILS ABSOLUTE AUTO 0.01 K/uL (0.00-0.20); BASOPHILS PERCENT AUTO 0.1 % (0.0-1.0); EOSINOPHILS ABSOLUTE AUTO 0.11 K/uL (0.00-0.45); EOSINOPHILS PERCENT AUTO 1.5 % (0.0-6.0); HEMATOCRIT 37.5 % (37.0-47.0); HEMOGLOBIN 12.4 g/dL (12.0-16.0); IMMATURE GRAN ABSOLUTE AUTO 0.03 K/uL (0.00-0.05); IMMATURE GRAN PERCENT AUTO 0.4 % (0.0-0.4); LYMPHOCYTES PERCENT AUTO 28.5 % (24.0-44.0); MEAN CORPUSCULAR HEMOGLOBIN 28.2 pg (28.0-32.0); MEAN CORPUSCULAR HGB CONC 33.1 g/dL (32.0-36.0); MEAN CORPUSCULAR VOLUME 85.4 fL (83.0-99.0); MEAN PLATELET VOLUME 9.3 fL (9.4-12.3); MONOCYTES ABSOLUTE AUTO 0.62 K/uL (0.00-0.80); MONOCYTES PERCENT AUTO 8.4 % (0.0-8.0); NEUTROPHILS PERCENT AUTO 61.1 % (41.0-71.0); PLATELET COUNT,PLT 305 K/uL (150-400); RED BLOOD CELL COUNT 4.39 M/uL (4.10-5.30); WHITE BLOOD CELL COUNT,WBC 7.37 K/uL (3.9-11.3)
[2023-10-23 05:22] LABS: APPEARANCE,URINE CLEAR; BILIRUBIN,URINE NEGATIVE (NEGATIVE); COLOR,URINE YELLOW; GLUCOSE,URINE NEGATIVE (NEGATIVE); KETONES,URINE NEGATIVE (NEGATIVE); LEUKOCYTE ESTERASE,URINE SMALL (NEGATIVE); NITRITE,URINE NEGATIVE (NEGATIVE); OCCULT BLOOD,URINE LARGE (NEGATIVE); PROTEIN,URINE NEGATIVE (NEGATIVE); UROBILINOGEN,URINE 0.2 EU/dL (<2.0)
[2023-10-23 05:37] LABS: RBC,URINE 30-45 (0-2/HPF)
[2023-10-23 05:38] LABS: BACTERIA,URINE FEW (NEGATIVE); EPITHELIAL CELLS,URINE RARE (NONE-FEW)
[2023-10-23 05:53] LABS: A/G RATIO 0.7 (0.9-1.6); ALBUMIN 2.6 g/dL (3.4-5.0); BILIRUBIN TOTAL 0.3 mg/dL (0.2-1.0); CALCIUM 8.6 mg/dL (8.5-10.1); CARBON DIOXIDE,CO2 23.3 mmol/L (21.0-32.0); CREATININE 0.9 mg/dL (0.6-1.0); EST CRCL DRUG DOSING (CG) 68.35 mL/min; POTASSIUM,K 4.2 mmol/L (3.5-5.1); PROTEIN TOTAL,TP 6.2 g/dL (6.4-8.2)
[2023-10-23] MEDS: Iopamidol 755 MG/ML 500 ML Multipack Bottle IVPUSH ONE (06:19)
[2023-10-23 06:48] VITALS: BP 162/87; PULSE 55
== END 2023-10-23 09:21 ==
LOC: MW.ED 04:58
DX: O90.3 Peripartum cardiomyopathy (principal); Z91.018 Allergy to other foods; Z79.82 Long term (current) use of aspirin; Z79.899 Other long term (current) drug therapy; Z75.8 Other problems related to medical facilities and other health care
CPT/HCPCS: 36415; 71045; 71275; 80053; 81001; 83880; 84484; 85025; 85379; 87086; 87635; 93005; 99285; Q9967; U0002

== ENCOUNTER 2024-04-04 08:16 | Emergency (ER) | payer BC, MEDICAID ==
[2024-04-04] MEDS ORDERED: Sodium Chloride 0.9% 10 ML Syringe FLUSH PRN (09:25)
[2024-04-04] MEDS: Sodium Chloride 0.9% 1,000 ML IV SCH ×2 (09:47)
[2024-04-04] MEDS: Ondansetron 4 MG/2 ML SDV IVPUSH ONE (09:48)
[2024-04-04 09:50] LABS: EOSINOPHILS ABSOLUTE AUTO 0.01 K/uL (0.00-0.45); EOSINOPHILS PERCENT AUTO 0.2 % (0.0-6.0); HEMATOCRIT 38.6 % (37.0-47.0); HEMOGLOBIN 13.1 g/dL (12.0-16.0); IMMATURE GRAN ABSOLUTE AUTO 0.01 K/uL (0.00-0.05); IMMATURE GRAN PERCENT AUTO 0.2 % (0.0-0.4); LYMPHOCYTES ABSOLUTE AUTO 1.44 K/uL (1.00-4.80); LYMPHOCYTES PERCENT AUTO 26.6 % (24.0-44.0); MEAN CORPUSCULAR HEMOGLOBIN 28.2 pg (28.0-32.0); MEAN CORPUSCULAR HGB CONC 33.9 g/dL (32.0-36.0); MEAN PLATELET VOLUME 9.9 fL (9.4-12.3); MONOCYTES ABSOLUTE AUTO 0.74 K/uL (0.00-0.80); MONOCYTES PERCENT AUTO 13.7 % (0.0-8.0); NEUTROPHILS ABSOLUTE AUTO 3.22 K/uL (1.80-7.70); NEUTROPHILS PERCENT AUTO 59.3 % (41.0-71.0); PLATELET COUNT,PLT 223 K/uL (150-400); RED BLOOD CELL COUNT 4.65 M/uL (4.10-5.30); WHITE BLOOD CELL COUNT,WBC 5.42 K/uL (3.9-11.3)
[2024-04-04 10:22] LABS: A/G RATIO 0.8 (0.9-1.6); ALANINE AMINOTRANSFERASE,ALT 30 IU/L (14-63); ALBUMIN 2.8 g/dL (3.4-5.0); ALKALINE PHOSPHATASE 83 U/L (46-116); ASPARTATE AMNIOTRANSFERASE,AST 16 IU/L (15-37); BILIRUBIN TOTAL 0.4 mg/dL (0.2-1.0); BLOOD UREA NITROGEN,BUN 10 mg/dL (7.0-18.0); CALCIUM 9.1 mg/dL (8.5-10.1); CHLORIDE,CL 102 mmol/L (98-107); CREATININE 0.6 mg/dL (0.6-1.0); GLUCOSE RANDOM 107 mg/dL (74-106); MAGNESIUM 1.7 mg/dL (1.8-2.4); POTASSIUM,K 4.2 mmol/L (3.5-5.1); PROTEIN TOTAL,TP 6.4 g/dL (6.4-8.2); SODIUM,NA 137 mmol/L (136-145)
[2024-04-04 10:34] LABS: ESTIMATED GFR 119 mL/min (>60)
[2024-04-04 11:30] VITALS: BP 122/62; PULSE 89
== END 2024-04-04 11:30 | disposition home or self-care (01) ==
LOC: MW.ED 08:16
DX: O21.0 Mild hyperemesis gravidarum (principal); Z91.018 Allergy to other foods; Z79.899 Other long term (current) drug therapy; Z3A.09 9 weeks gestation of pregnancy
CPT/HCPCS: 36415; 80053; 83735; 85025; 96361; 96374; 99284; J2405; J7030; 99283

== ENCOUNTER 2024-04-17 13:57 | Emergency (ER) | payer MEDICAID ==
[2024-04-17] MEDS ORDERED: Sodium Chloride 0.9% 2.5 ML Syringe FLUSH PRN (14:33)
[2024-04-17] MEDS ORDERED: Sodium Chloride 0.9% 20 ML SDV IV PRN (14:33)
[2024-04-17] MEDS: Sodium Chloride 0.9% 10 ML Syringe FLUSH PRN (15:13)
[2024-04-17] MEDS: Ondansetron 4 MG/2 ML SDV IVPUSH ONE (15:13)
[2024-04-17] MEDS: Metoclopramide 10 MG/2 ML SDV IVPUSH ONE (15:13)
[2024-04-17 15:26] LABS: BASOPHILS ABSOLUTE AUTO 0.01 K/uL (0.00-0.20); BASOPHILS PERCENT AUTO 0.1 % (0.0-1.0); EOSINOPHILS ABSOLUTE AUTO 0.01 K/uL (0.00-0.45); EOSINOPHILS PERCENT AUTO 0.1 % (0.0-6.0); IMMATURE GRAN ABSOLUTE AUTO 0.01 K/uL (0.00-0.05); IMMATURE GRAN PERCENT AUTO 0.1 % (0.0-0.4); LYMPHOCYTES ABSOLUTE AUTO 1.62 K/uL (1.00-4.80); LYMPHOCYTES PERCENT AUTO 24.1 % (24.0-44.0); MEAN CORPUSCULAR HEMOGLOBIN 27.7 pg (28.0-32.0); MEAN CORPUSCULAR HGB CONC 34.2 g/dL (32.0-36.0); MEAN CORPUSCULAR VOLUME 80.9 fL (83.0-99.0); MEAN PLATELET VOLUME 10.2 fL (9.4-12.3); MONOCYTES PERCENT AUTO 10.4 % (0.0-8.0); NEUTROPHILS ABSOLUTE AUTO 4.38 K/uL (1.80-7.70); NEUTROPHILS PERCENT AUTO 65.2 % (41.0-71.0); PLATELET COUNT,PLT 239 K/uL (150-400); WHITE BLOOD CELL COUNT,WBC 6.73 K/uL (3.9-11.3)
[2024-04-17] MEDS: Sodium Chloride 0.9% 1,000 ML IV ONE ×2 (15:39→17:02)
[2024-04-17 15:56] LABS: CALCIUM 9.7 mg/dL (8.5-10.1); CARBON DIOXIDE,CO2 20.4 mmol/L (21.0-32.0); CREATININE 0.6 mg/dL (0.6-1.0); EST CRCL DRUG DOSING (CG) 102.52 mL/min; POTASSIUM,K 3.9 mmol/L (3.5-5.1)
[2024-04-17 17:15] VITALS: BP 139/50; PULSE 135
== END 2024-04-17 17:48 | disposition home or self-care (01) ==
LOC: MW.ED 13:57
DX: O21.0 Mild hyperemesis gravidarum (principal); Z91.018 Allergy to other foods; Z79.899 Other long term (current) drug therapy; Z3A.11 11 weeks gestation of pregnancy
CPT/HCPCS: 36415; 80048; 85025; 96374; 96375; 99284; J2405; J2765; J7030; 99283